=== PATIENT | male | born 1955 | race African-American/Black ===

== ENCOUNTER 2018-03-12 13:13 | Emergency (ER) | payer MEDICARE ==
--- NOTE | 2018-03-12 14:41 | ULT ---
DOPPLER VENOUS ULTRASOUND OF LEFT LOWER EXTREMITY: INDICATION: Rule out DVT with left leg pain. TECHNIQUE: Valenzuela scale, color Doppler, and vascular duplex with spectral analysis was performed of the deep venou s structures of both lower extremities. The common femoral vein, superficial femoral vein, popliteal vein, posterior tibial vein, proximal greater saphenous, and proximal profunda veins were assessed bi laterally. Additional valenzuela scale and color Doppler views were obtained of the left calf in the regio n of pain. FINDINGS: Normal compression, flow, and augmentation is seen within the deep venous structures of left lower ex tremity. There is a 16.4 predominantly hypoechoic but heterogeneous nonvascular fluid collection wit hin the posterior intermuscular space of the posteromedial left calf in the region of pain. IMPRESSION: 1. No evidence of deep vein thrombosis in the left lower extremity. 2. Findings suspicious for intramuscular hematoma of the left foreleg in the region of pain. POS: EMMANUEL
== END 2018-03-12 16:00 | disposition home or self-care (01) ==
LOC: ERS 13:13
DX: S80.12XA Contusion of left lower leg, initial encounter (principal); F17.210 Nicotine dependence, cigarettes, uncomplicated; W22.8XXA Striking against or struck by other objects, initial encounter